=== PATIENT | female | born 1985 | race Caucasian/White ===

== ENCOUNTER 2021-05-20 07:06 | Inpatient (IN) | payer OTHER ==
[~2021-05-20 07:06] MED LIST: Bupivacaine 0.25% 10 ML SDV ONE
--- NOTE | 2021-05-20 12:11 | PCM.LDHP ---
L&D History of Present Illness - General Date of Service: 05/20/21 Admit Problem/Dx: Admission Diagnosis/Problem Admission Diagnosis/Problem 05/20/21 12:03 Sunshine is a 34-year-old 2 para 1-0-0-1 female presently at 39-0/7 weeks gestational age with an CARMELO of 05/27/2021 who was admitted for induction of labor. Source of Information: Patient History Limitations: Reports: No Limitations - History of Present Illness Introduction:: Sunshine is a 34-year-old 2 para 1-0-0-1 female presently at 39-0/7 weeks gestational age with an CARMELO of 05/27/2021 who was admitted for induction of labor. The process and procedure of induction of labor is discussed in detail with patient including risks, benefits, follow-up, alternatives of care including allowing for natural onset of labor. She appears understand and wishes to proceed. GAME ROOM ATTENDANT history: Sunshine is a 2 para 1-0-0-1. Patient had menarche at age 12. Cycles reasonably regular. Her is dated by her LMP 08/20/2020. She is not using any control at the time of conception. She denies any STIs or abnormal Pap smears. Her past obstetric history includes the followin. Female born 02/20/2001 18-39-5/7 weeks gestational age12 hours labor6 pounds 7 ouncesvacuum extraction deliveryepidural for analgesia. [facility] in [facility]'s name is Lexi course: Patient was initially seen for this on 11/06/2020 at 11-1/7 weeks gestational age. Her ultrasound at that time correlated well with her dates. She had a second ultrasound done at 19-5/7 weeks which also correlated well with dates and was within normal limits. She has had a relatively unremarkable course. She was seen on a regular basis for care. Her weight increased from 143 pounds to 171.6 pounds. Vital signs remained stable throughout the course. Fundal height growth was appropriate. On last evaluation clinic patient cervix was 2 cm dilated 60% effaced, soft, mid position, -3. Patient had a negative group B strep screen. She declined genetic testing during the course of the . Her [place] depression screen score on 01/28/2021 was 3/10. She failed her 1 hour GTT but passed her 3-hour GTT. She plans to breast-feed. Is open to epidural in labor delivery but would like to try natural childbirth if possible. He received her Tdap on 04/03/2021. She is rubella immune. Laboratory testing . The first visit patient's blood was O+ with a negative antibody screen. Hemoglobin was 14.6 g/dL and platelets were 257,000. She is rubella immune. RPR is nonreactive. Urine culture was negative at that time. Hepatitis B surface antigen and HIV assays were both negative. Chlamydia, gonorrhea and hepatitis C virus antibody tests were negative. Second trimester labs showed a hemoglobin of 12.2 g/dL and platelets at 181,000. Her first glucose test was a 1 hour GTT and was elevated at 196. 3-hour GTT had the following results: Fasting blood sugar 90. 1 hour glucose 112. 2-hour glucose was 114. 3-hour glucose was 54. Group B strep screen was negative. Allergies: None Medications: 1. vitamins Past medical history: 1. Vaginal delivery via vacuum extraction 02/19/2018. Past surgical history unremarkable Family history: Father with history of skin cancertype unknown. Maternal aunt with breast cancer age 45. No other family history of bleeding disorders, blood clotting disorders, related problems or unusual reactions to medications. Social history: Patient is . She lives in [place], [place]. She does not work outside the home. is Farshad Rose. She does not use any significance alcohol drugs or tobacco. Review of systems: Review of systems: In general patient has no complaints. Baby has been active. No significant contractions are noted. Skin: Negative Lungs: No infectious symptoms or shortness of breath Cardiovascular: No chest pain or exercise intolerance Breasts: No lumps, changes in size, pain, dimpling, discharge or axillary or supraclavicular concerns. GI: Negative : changes noted. Musculoskeletal: Negative Neurological: Negative Physical exam: In general the patient is well-developed, well-nourished, pleasant female of stated age in no acute distress. On last evaluation in clinic on 05/14/2021 patient blood pressure 110/66. Weight was 171.6 pounds which is increased from 143 pounds pregravid. Height is 5 feet 4 inches. Pregravid body mass index was 24. FHR at that time was 142 bpm. Skin is warm dry without lesions. HEENT, neck and back within normal limits. Lungs are clear with good breath sounds in all lung hendrickson. Cardiovascular exam shows regular and rhythm without murmurs. Breast exam deferred have been done at first visit and found to be normal. It is not repeated at this time. Abdomen is gravid with last fundal height clinic at 37.5 cm. Baby in vertex presentation. Genital exam per digital as described above. Extremities and neurological exam are grossly within normal limits. - Related Data Allergies/Adverse Reactions: Allergies Allergy/AdvReac Type Severity Reaction Status Date / Time No Known Allergies Allergy Verified 02/18/18 16:31 Home Medications: Home Meds Acetaminophen [Tylenol] 650 mg PO Q6H PRN tablet 02/20/18 [Rx] Benzocaine/Menthol [Dermoplast Pain Relief [place]] 1 spray TOP ASDIRECTED PRN canister 02/20/18 [Rx] Docusate Sodium [Colace] 100 mg PO BID PRN cap 02/20/18 [Rx] Hydrocortisone Acetate [Anucort-HC] 25 mg RECTAL BID PRN supp 02/20/18 [Rx] Ibuprofen [Motrin] 600 mg PO Q6H PRN tablet 02/20/18 [Rx] Lanolin [Lansinoh HPA] 1 applic TOP ASDIRECTED PRN tube 02/20/18 [Rx] Vit with Ca/FA/Iron [ Plus Iron] 1 each PO DAILY tablet 02/20/18 [Rx] dontae Ulices [Tucks] 1 pad TOP ASDIRECTED PRN pad 02/20/18 [Rx] Past Medical History GAME ROOM ATTENDANT History: Reports: H&P Review of Systems - Review of Systems: Review Of Systems: See Below L&D Exam - Exam Exam: See Below Problem List Initiated/Reviewed/Updated: Yes Assessment/Plan Comment:: Assessment: 1Radha is a 34-year-old 2 para 1-0-0-1 female presently at 39-0/7 weeks gestational age with an CARMELO of 05/27/2021 who was admitted for induction of labor. 2. Group B strep screen negative 3. Patient plans to breast-feed 4. Patient is okay with epidural in labor delivery but will try natural labor at first. 5. Tdap given during . Patient is rubella immune. 6. Risk factors with this are minimal. Plan: 1. Induction of labor with Pitocin initially to be followed by AROM when possible. 2. Epidural if patient desires 3. Support breast-feeding decision 4. Admission labs consist of CBC, RPR, Covid testing 5. Anticipate .
[2021-05-20] MEDS ORDERED: Sodium Chloride 0.9% 10 ML Syringe FLUSH PRN (12:18)
[2021-05-20] MEDS ORDERED: Nalbuphine 10 MG/1 ML Vial IVPUSH PRN (12:18)
[2021-05-20] MEDS ORDERED: Ondansetron 4 MG/2 ML SDV IVPUSH PRN (12:18)
[2021-05-20] MEDS ORDERED: Oxytocin/Lactated Ringers 10 UNIT/1,000 ML BAG IV SCH ×2 (12:30)
[2021-05-20] MEDS: Lactated Ringers 1,000 ML IV SCH ×3 (13:11→18:07)
[2021-05-20] MEDS ORDERED: Bupivacaine/fentaNYL/NS 100 ML Bag EPIDUR PRN (14:35)
[2021-05-20] MEDS ORDERED: ePHEDrine 50 MG/ML SDV IVPUSH PRN (14:35)
[2021-05-20] MEDS ORDERED: diphenhydrAMINE 50 MG/ML SDV IVPUSH PRN (14:35)
[2021-05-20] MEDS ORDERED: fentaNYL 100 MCG/2 ML SDV EPIDUR PRN (14:35)
--- NOTE | 2021-05-20 14:37 | PCM.PREANE ---
Preanesthetic Assessment - Procedure Proposed Procedure: janine - Anesthesia/Transfusion/Family Hx Anesthesia History: Prior Anesthesia Without Reaction Family History of Anesthesia Reaction: No Transfusion History: No Prior Transfusion(s) Type of Transfusion Reactions: Reports: Unknown - Review of Systems General: No Symptoms Pulmonary: No Symptoms Cardiovascular: No Symptoms Gastrointestinal: No Symptoms Neurological: No Symptoms Other: Reports: None - Physical Assessment Vital Signs: Last Vital Signs Temp 97.8 F 05/20/21 12:18 Pulse 95 05/20/21 12:18 Resp 16 05/20/21 12:18 BP 116/80 05/20/21 12:18 Pulse Ox 99 05/20/21 12:18 Height: 5 ft 4 in Weight: 78.471 kg ASA Class: 2 Mental Status: Alert & Oriented x3 Airway Class: Mallampati = 1 Dentition: Reports: Normal Dentition Thyro-Mental Finger Breadths: 3 Mouth Opening Finger Breadths: 3 ROM/Head Extension: Full Lungs: Clear to Auscultation, Normal Respiratory Effort Cardiovascular: Regular Rate, Regular Rhythm - Lab Values: Laboratory Last Values WBC 8.72 K/mm3 (3.98-10.04) 05/20/21 12:32 RBC 3.92 M/mm3 (3.98-5.22) L 05/20/21 12:32 Hgb 12.6 gm/dl (11.2-15.7) 05/20/21 12:32 Hct 38.0 % (34.1-44.9) 05/20/21 12:32 MCV 96.9 fl (79.4-94.8) H 05/20/21 12:32 MCH 32.1 pg (25.6-32.2) 05/20/21 12:32 MCHC 33.2 g/dl (32.2-35.5) 05/20/21 12:32 RDW Std Deviation 44.8 fL (36.4-46.3) 05/20/21 12:32 Plt Count 182 K/mm3 (182-369) 05/20/21 12:32 MPV 11.1 fl (9.4-12.3) 05/20/21 12:32 Neut % (Auto) 70.7 % (34.0-71.1) 05/20/21 12:32 Lymph % (Auto) 18.3 % (19.3-51.7) L 05/20/21 12:32 [place] % (Auto) 9.1 % (4.7-12.5) 05/20/21 12:32 Eos % (Auto) 1.6 (0.7-5.8) 05/20/21 12:32 Baso % (Auto) 0.1 % (0.1-1.2) 05/20/21 12:32 Neut # (Auto) 6.16 K/mm3 (1.56-6.13) H 05/20/21 12:32 Lymph # (Auto) 1.60 K/mm3 (1.18-3.74) 05/20/21 12:32 [place] # (Auto) 0.79 K/mm3 (0.24-0.36) H 05/20/21 12:32 Eos # (Auto) 0.14 K/mm3 (0.04-0.36) 05/20/21 12:32 Baso # (Auto) 0.01 K/mm3 (0.01-0.08) 05/20/21 12:32 SARS-CoV-2 RNA (MERCEDEZ) Negative (NEGATIVE) 05/20/21 12:36 - Allergies Allergies/Adverse Reactions: Allergies Allergy/AdvReac Type Severity Reaction Status Date / Time No Known Allergies Allergy Verified 05/20/21 12:18 - Blood Blood Available: No - Acknowledgements Anesthesia Type Planned: Epidural Pt an Appropriate Candidate for the Planned Anesthesia: Yes Alternatives and Risks of Anesthesia Discussed w Pt/Guardian: Yes Pt/Guardian Understands and Agrees with Anesthesia Plan: Yes PreAnesthesia Questionnaire Cardiovascular History: Reports: None Respiratory History: Reports: None Gastrointestinal History: Reports: None POTATO PANCAKE FRIER History: Reports: : 2 (39 weeks) Para: 1 Musculoskeletal History: Reports: None Psychiatric History: Reports: None Endocrine/Metabolic History: Reports: None Oncologic (Cancer) History: Reports: None - SUBSTANCE USE Tobacco Use Status *Q: Never Tobacco User Tobacco Use Within Last Twelve Months: No Second Hand Smoke Exposure: No Days Per Week of Alcohol Use: 0 Recreational Drug Use History: No - HOME MEDS Home Medications: Home Meds Acetaminophen [Tylenol] 650 mg PO Q6H PRN tablet 02/20/18 [Rx] Benzocaine/Menthol [Dermoplast Pain Relief [place]] 1 spray TOP ASDIRECTED PRN canister 02/20/18 [Rx] Docusate Sodium [Colace] 100 mg PO BID PRN cap 02/20/18 [Rx] Hydrocortisone Acetate [Anucort-HC] 25 mg RECTAL BID PRN supp 02/20/18 [Rx] Ibuprofen [Motrin] 600 mg PO Q6H PRN tablet 02/20/18 [Rx] Lanolin [Lansinoh HPA] 1 applic TOP ASDIRECTED PRN tube 02/20/18 [Rx] Vit with Ca/FA/Iron [ Plus Iron] 1 each PO DAILY tablet 02/20/18 [Rx] dontae Elena [Tucks] 1 pad TOP ASDIRECTED PRN pad 02/20/18 [Rx] - CURRENT (IN HOUSE) MEDS Current Meds: Current Medications Oxytocin/Lactated Ringer's (Pitocin In Lr 10 Units/1,000 Ml) 10 unit in 1,000 mls @ 500 mls/hr IV .CONTINUOUS HERI Oxytocin/Lactated Ringer's (Pitocin In Lr 10 Units/1,000 Ml) 10 unit in 1,000 mls @ 12 mls/hr IV TITRATE HERI; Protocol Last Admin: 05/20/21 13:11 Dose: 2 munits/min, 12 mls/hr Documented by: Lactated Ringer's (Ringers, Lactated) 1,000 mls @ 100 mls/hr IV ASDIRECTED HERI Last Admin: 05/20/21 13:11 Dose: 100 mls/hr Documented by: Nalbuphine HCl (Nalbuphine 10 Mg/1 Ml Vial) 10 mg IVPUSH Q2H PRN PRN Reason: Pain Ondansetron HCl (Ondansetron 4 Mg/2 Ml Sdv) 4 mg IVPUSH Q4H PRN PRN Reason: Nausea/Vomiting Sodium Chloride (Sodium Chloride 0.9% 10 Ml Syringe) 10 ml FLUSH ASDIRECTED PRN PRN Reason: Keep Vein Open
--- NOTE | 2021-05-20 20:28 | PCM.SN.2 ---
- Free Text/Narrative Note: Delivery note: Stage I: Sunshine is a 34-year-old 2 now para 2-0-0-2 female presently at 39-0/7 weeks gestational age with an CARMELO of 05/27/2021 who was admitted at midday on 05/20/2021 for induction of labor. She underwent induction of labor with Pitocin followed by augmentation with AROM. AROM resulted in clear amniotic fluid. She labored to approximately 4 to 5 cm then underwent epidural for analgesia. heart tones remained reassuring throughout labor course. She made good progress and rapidly went to complete cervical dilation by approximately 1900 hrs. on 05/20/2021. Stage II: Celsa delivered a larry, viable, male named Tracy Starks in a direct occiput anterior position over an intact perineum at 2004 hrs. on 05/20/2021. There is nuchal cord x1 which was reduced over the baby's body. Shoulders were delivered without problems. Baby was placed on mom's abdomen and dried with warm blanket. Nose and mouth were bulb suctioned. Pitocin IV was increased to 500 cc an hour to facilitate increase in uterine tone and decrease likelihood of bleeding. The umbilical cord allowed to pulsate for 3 minutes and then was clamped x2 and cut by the baby's father Farshad. Cord blood was obtained. Umbilical cord had 3 vessels. The baby weighed 3340 g (7 pounds 5.8 ounces), had Apgars of 8 and 9 and a length of 21 inches. Stage III: The placenta delivered in a Domínguez presentation at 2009 hrs., appeared intact and complete and was discarded per patient desire. Patient had no lacerations and no suturing was required. The estimated blood loss was 100 cc. Patient plans to breast-feed. Condition: Good Time Documentation
[2021-05-20] MEDS ORDERED: Benzocaine/Menthol 20%-0.5% Spray 78 GM Cannister TOP PRN (20:57)
[2021-05-20] MEDS ORDERED: Docusate Sodium 100 MG Cap PO PRN (20:57)
[2021-05-20] MEDS ORDERED: Witch Hazel Medicated Pads 40/Jar TOP PRN (20:57)
[2021-05-20] MEDS ORDERED: Acetaminophen 325 MG Tab PO PRN (20:57)
[2021-05-20] MEDS: Ibuprofen 600 MG Tab PO PRN (21:11)
[2021-05-21] MEDS: Ibuprofen 600 MG Tab PO PRN ×2 (03:59→16:46)
--- NOTE | 2021-05-21 07:34 | PCM.DCSUM1 ---
Discharge Summary - Hospital Course Diagnosis: Stroke: No - Discharge Data Discharge Date: 05/21/21 Discharge Disposition: Home, Self-Care 01 Condition: Good - Referral to Home Health Primary Care Physician: Terry John MD - Patient Summary/Data Hospital Course: Stage I: Sunshine is a 34-year-old 2 now para 2-0-0-2 female presently at 39-0/7 weeks gestational age with an CARMELO of 05/27/2021 who was admitted at midday on 05/20/2021 for induction of labor. She underwent induction of labor with Pitocin followed by augmentation with AROM. AROM resulted in clear amniotic fluid. She labored to approximately 4 to 5 cm then underwent epidural for analgesia. heart tones remained reassuring throughout labor course. She made good progress and rapidly went to complete cervical dilation by approximately 1900 hrs. on 05/20/2021. Stage II: Celsa delivered a larry, viable, male named Tracy Starks in a direct occiput anterior position over an intact perineum at 2004 hrs. on 05/20/2021. There is nuchal cord x1 which was reduced over the baby's body. Shoulders were delivered without problems. Baby was placed on mom's abdomen and dried with warm blanket. Nose and mouth were bulb suctioned. Pitocin IV was increased to 500 cc an hour to facilitate increase in uterine tone and decrease likelihood of bleeding. The umbilical cord allowed to pulsate for 3 minutes and then was clamped x2 and cut by the baby's father Farshad. Cord blood was obtained. Umbilical cord had 3 vessels. The baby weighed 3340 g (7 pounds 5.8 ounces), had Apgars of 8 and 9 and a length of 21 inches. Stage III: The placenta delivered in a Domínguez presentation at 2009 hrs., appeared intact and complete and was discarded per patient desire. Patient had no lacerations and no suturing was required. The estimated blood loss was 100 cc. Patient plans to breast-feed. Condition: Good Uncomplicated course. Desired discharge at 24 hours . - Patient Instructions Diet: Usual Diet as Tolerated Activity: No Strenuous Activities Activity, Other: pelvic rest Driving: May Drive Today Showering/Bathing: May Shower Notify Provider of: Fever, Increased Pain, Swelling and Redness, Drainage, Nausea and/or Vomiting - Discharge Plan *PRESCRIPTION DRUG MONITORING PROGRAM REVIEWED*: No *COPY OF PRESCRIPTION DRUG MONITORING REPORT IN PATIENT RICKY: No Home Medications: Home Meds Vit with Ca/FA/Iron [ Plus Iron] 1 each PO DAILY tablet 02/20/18 [Rx] Referrals: Terry John MD [Primary Care Provider] - (2 weeks) - Discharge Summary/Plan Comment DC Time >30 min.: No Total # of Minutes for Discharge Time: 15 - General Info Date of Service: 05/21/21 Functional Status: Reports: Pain Controlled - Review of Systems General: Reports: No Symptoms HEENT: Reports: No Symptoms Pulmonary: Reports: No Symptoms Cardiovascular: Reports: No Symptoms Gastrointestinal: Reports: No Symptoms Genitourinary: Reports: No Symptoms Musculoskeletal: Reports: No Symptoms Skin: Reports: No Symptoms Neurological: Reports: No Symptoms Psychiatric: Reports: No Symptoms - Patient Data Vitals - Most Recent: Last Vital Signs Temp 36.2 C 05/21/21 03:29 Pulse 87 05/21/21 03:29 Resp 15 05/21/21 03:29 BP 98/59 L 05/21/21 03:29 Pulse Ox 94 L 05/21/21 03:29 Weight - Most Recent: 78.471 kg I&O - Last 24 hours: Intake & Output 05/20/21 05/21/21 05/21/21 22:59 06:59 14:59 Intake Total 3300 Balance 3300 Lab Results - Last 24 hrs: Laboratory Results - last 24 hr 05/20/21 05/20/21 05/20/21 Range/Units 12:32 12:32 12:36 WBC 8.72 (3.98-10.04) K/mm3 RBC 3.92 L (3.98-5.22) M/mm3 Hgb 12.6 (11.2-15.7) gm/dl Hct 38.0 (34.1-44.9) % MCV 96.9 H (79.4-94.8) fl MCH 32.1 (25.6-32.2) pg MCHC 33.2 (32.2-35.5) g/dl RDW Std Deviation 44.8 (36.4-46.3) fL Plt Count 182 (182-369) K/mm3 MPV 11.1 (9.4-12.3) fl Neut % (Auto) 70.7 (34.0-71.1) % Lymph % (Auto) 18.3 L (19.3-51.7) % [place] % (Auto) 9.1 (4.7-12.5) % Eos % (Auto) 1.6 (0.7-5.8) Baso % (Auto) 0.1 (0.1-1.2) % Neut # (Auto) 6.16 H (1.56-6.13) K/mm3 Lymph # (Auto) 1.60 (1.18-3.74) K/mm3 [place] # (Auto) 0.79 H (0.24-0.36) K/mm3 Eos # (Auto) 0.14 (0.04-0.36) K/mm3 Baso # (Auto) 0.01 (0.01-0.08) K/mm3 RPR Non-reactive (NONREACTIVE) SARS-CoV-2 RNA (MERCEDEZ) Negative (NEGATIVE) Med Orders - Current: Current Medications Acetaminophen (Acetaminophen 325 Mg Tab) 650 mg PO Q4H PRN PRN Reason: mild pain or fever Benzocaine/Menthol (Benzocaine/Menthol 20%-0.5% [place] 78 Gm Cannister) 0 gm TOP ASDIRECTED PRN PRN Reason: Perineal Comfort Measure Docusate Sodium (Docusate Sodium 100 Mg Cap) 100 mg PO BID PRN PRN Reason: Constipation Ibuprofen (Ibuprofen 600 Mg Tab) 600 mg PO Q4H PRN PRN Reason: Mild pain or fever Last Admin: 05/21/21 03:59 Dose: 600 mg Documented by: Erinnat Multivit/[place]/Iron/Folic Ac ( Multivitamin With Calcium/Folic Acid/Iron Tab) 1 each PO DAILY HERI Witch Leena (Witch Leena Medicated Pads 40/Jar) 1 pad TOP ASDIRECTED PRN PRN Reason: Perineal Comfort Measure Discontinued Medications Diphenhydramine HCl (Diphenhydramine 50 Mg/Ml Sdv) 25 mg IVPUSH Q6H PRN PRN Reason: pruritis Ephedrine Sulfate (Ephedrine 50 Mg/Ml Sdv) 5 mg IVPUSH ASDIRECTED PRN PRN Reason: Hypotension Last Admin: 05/20/21 18:02 Dose: 5 mg Documented by: Fentanyl (Fentanyl 100 Mcg/2 Ml Sdv) 100 mcg EPIDUR Q3H PRN PRN Reason: Pain Last Admin: 05/20/21 16:37 Dose: 100 mcg Documented by: Fentanyl/Bupivacaine HCl (Bupivacaine/Fentanyl/Ns 100 Ml Bag) 100 ml EPIDUR ASDIRECTED PRN PRN Reason: Pain Last Admin: 05/20/21 16:35 Dose: 100 ml Documented by: Oxytocin/Lactated Ringer's (Pitocin In Lr 10 Units/1,000 Ml) 10 unit in 1,000 mls @ 500 mls/hr IV .CONTINUOUS HERI Oxytocin/Lactated Ringer's (Pitocin In Lr 10 Units/1,000 Ml) 10 unit in 1,000 mls @ 12 mls/hr IV TITRATE HERI; Protocol Last Titration: 05/20/21 20:25 Dose: 41.67 munits/min, 250.02 mls/hr Documented by: Lactated Ringer's (Ringers, Lactated) 1,000 mls @ 100 mls/hr IV ASDIRECTED HEIR Last Infusion: 05/20/21 19:43 Dose: 999 mls/hr Documented by: Nalbuphine HCl (Nalbuphine 10 Mg/1 Ml Vial) 10 mg IVPUSH Q2H PRN PRN Reason: Pain Ondansetron HCl (Ondansetron 4 Mg/2 Ml Sdv) 4 mg IVPUSH Q4H PRN PRN Reason: Nausea/Vomiting Sodium Chloride (Sodium Chloride 0.9% 10 Ml Syringe) 10 ml FLUSH ASDIRECTED PRN PRN Reason: Keep Vein Open - Exam General: Reports: Alert, Oriented HEENT: Reports: Pupils Equal, Pupils Reactive, EOMI, Mucous Membr. Moist/[place] Neck: Reports: Supple Lungs: Reports: Clear to Auscultation, Normal Respiratory Effort Cardiovascular: Reports: Regular Rate, Regular Rhythm GI/Abdominal Exam: Normal Bowel Sounds, Soft, Non-Tender, No Organomegaly, No Distention, No Abnormal Bruit, No Mass, Pelvis Stable Rectal (Female) Exam: Normal Exam Back Exam: Reports: Normal Inspection, Full Range of Motion Extremities: Normal Inspection, Normal Range of Motion, Non-Tender, No Pedal Edema, Normal Capillary Refill Skin: Reports: Warm, Dry, Intact Wound/Incisions: Reports: Healing Well Neurological: Reports: No New Focal Deficit Psy/Mental Status: Reports: Alert, Normal Affect, Normal Mood
--- NOTE | 2021-05-21 08:35 | PCM48HPAN ---
Post Anesthesia Note - EVALUATION WITHIN 48HRS OF ANESTHETIC Vital Signs in Normal Range: Yes Patient Participated in Evaluation: Yes Respiratory Function Stable: Yes Airway Patent: Yes Cardiovascular Function Stable: Yes Hydration Status Stable: Yes Pain Control Satisfactory: Yes Nausea and Vomiting Control Satisfactory: Yes Mental Status Recovered: Yes Vital Signs: Last Vital Signs Temp 97.2 F 05/21/21 03:29 Pulse 87 05/21/21 03:29 Resp 15 05/21/21 03:29 BP 98/59 L 05/21/21 03:29 Pulse Ox 94 L 05/21/21 03:29 - COMMENTS/OBSERVATIONS Free Text/Narrative:: Patient resting in bed holding baby when visiting with patient. Patient stated that she was "very happy" with her epidural and labor experience. Patient complained of mild back pain in epidural placement site but is controlled and has not gotten worse. Discussed signs and symptoms of infection, post-dural puncture headaches, post- depression, and if patient experiences increased back discomfort. Encouraged patient if any of those signs or symptoms develop to contact OB/Anesthesia so the patient can be treated accordingly if needed. Patient verbalized understanding. Patient did not voice any questions or concerns at this time. Martha Izquierdo, [employer] S[employer] OFFICER
[2021-05-21] MEDS ORDERED: Prenatal Multivitamin with Calcium/Folic Acid/Iron Tab PO SCH (09:00)
== END 2021-05-21 20:45 | disposition home or self-care (01) | DRG 807 ==
LOC: JD.OB 12:02 → OBSVTOIN 20:04 → JD.OB 20:05
PROVIDERS: ADMIT Obstetrics & Gynecology; ATTEND Obstetrics & Gynecology
PROC: 10E0XZZ Delivery of Products of Conception, External Approach (ICD-10-PCS; principal; 2021-05-20)
PROC: 3E033VJ Introduction of Other Hormone into Peripheral Vein, Percutaneous Approach (ICD-10-PCS; 2021-05-20)
PROC: 10907ZC Drainage of Amniotic Fluid, Therapeutic from Products of Conception, Via Natural or Artificial Opening (ICD-10-PCS; 2021-05-20)
PROC: 3E0R3BZ Introduction of Anesthetic Agent into Spinal Canal, Percutaneous Approach (ICD-10-PCS; 2021-05-20)
DX: O69.81X0 Labor and delivery complicated by cord around neck, without compression, not applicable or unspecified (principal); Z37.0 Single live birth; Z3A.39 39 weeks gestation of pregnancy; Z20.822 Contact with and (suspected) exposure to COVID-19
CPT/HCPCS: 01967; 36415; 51702; 59025; 59409; 85025; 86592; A9270-GY; J2590; J3010; J3490; J7120; U0002